=== PATIENT | female | born 1975 | race Caucasian/White ===

== ENCOUNTER 2021-11-12 21:27 | Outpatient (REF) | payer BC, SELFPAY ==
[2021-11-12 22:19] LABS: Bilirubin Negative (Negative); Blood Negative (Negative); Clarity Clear (Clear); Glucose Negative (Negative); Ketones Negative (Negative); Leukocyte Esterase Negative (Negative); Nitrite Negative (Negative); Urobilinogen 0.2 EU/dL (Up TO 0.2); pH 6.5 (5-8)
[2021-11-14 13:55] LABS: Chlamydia Result Negative (Negative); GC Result Negative (Negative)
== END 2021-11-12 21:28 | disposition home or self-care (01) ==
LOC: LBN 21:27
PROVIDERS: Visit Provider Nurse Practitioner Family
DX: R30.9 Painful micturition, unspecified (principal); R82.998 Other abnormal findings in urine
CPT/HCPCS: 87077; 87491; 87591; 81003; 87086; 87186; 87480; 87510; 87660

== ENCOUNTER 2021-12-17 18:51 | Outpatient (REF) | payer BC, SELFPAY ==
--- OUTSIDE RECORDS SUMMARY | 2021-12-17 18:53 | XMS_ITS ---
:1975 Author Care Team Providers Name Role Phone [facility] ALMANZA Pecan Grower [phone] SYLWIA DESHPANDE CLINICAL EXERCISE SPECIALIST Primary Care Provider [phone] Allergies Code Code System Name Reaction Severity Status Onset Shellfish Anaphylaxis ? Active ? Derived Notes: also has a rash when she is in the sun Medications Name Status Start Date Stop Date ? ? amoxicillin 500 mg capsule Completed ? 06/04 amoxicillin 875 mg-potassium Completed ? clavulanate 125 mg tablet Bentyl 10 mg capsule Active ? Not availab le Take 1 capsule 3 times a day by oral route. ciprofloxacin 750 mg tablet Active ? Not available Epi E-Z Pen 0.3 mg/0.3 mL injection, auto-injector Active ? Not available Take 1 auto every day by injection route as needed. fluticasone propionate 50 mcg/actuation Active ? Not available nasal spray,suspension valacyclovir 1 gram tablet Active ? Not a vailable Take 1 tablet every 12 hours by oral route for 14 days. Problems Name Status Onset Date Source ? Venous Varices Active 06/14/2020 ? Venous Insufficiency of Leg Active 06/14/2020 ? Irritable Bowel Syndrome Active 06/14/2020 ? Pain in Throat Active 07/05/2020 ? Procedures Date Name Performed by ? 11/21/2019 Endoscopy Information not avai lable 11/21/2019 Colonoscopy Information not avai lable ? Endovenous Laser Ablation of Varicose Ve in Information not available Notes: unilateral ? Procedure on Vein Information not avai lable Notes: cauterized vein in right leg Notes: H pylori antibody is nega tive Results Lab Results Date Name Specimen Result Interpretation Description Value Range Status Address ? 06/13/2020 SARS CoV 2 SWAB ? Covid-19 negative negative Fi nal [place] RNA Result [facility] (COVID-19), [facility] QL, reviewer sales-PCR, (Int ernal): Respiratory [address] Specimen [address]t ? ? SWAB ? Performing the broad ? Final No rth Lab institute [facility] L [facility] (Internal) : [address] 06/08/2020 CBC W/ Auto BLD Low Wbc 4.8 10*3/uL 5.0-10.0 F inal [place] Diff 10*3/uL [facility] L [facility] (Internal) : [address] ? ? BLD ? Rbc 4.54 4.10-5.30 Final [place] 10*6/uL 10*6/uL [facility] L ab (Internal) : [address] t ? ? BLD ? Hgb 13.6 g/dL 12.0-16.0 Final Nort h g/dL [facility] L [facility] (Internal) : [address] ? ? BLD ? Hct 41.5 % 37.0-47.0 Final [facility] : [address] ? ? BLD ? Mcv 91.4 fL 80.0-96.0 Final [facility] L ab (Internal) : [address] ? ? BLD ? Mch 30.0 pg 26.0-32.0 Final [facility] L ab (Internal) : [address] t ? ? BLD ? Mchc 32.8 g/dL 31.0-35.0 Final Nort h g/dL [facility] (Internal) : [address] t ? ? BLD ? Rdw 13.2 % 11.5-14.5 Final [facility] ([facility] : [address] t ? ? BLD ? Plt 309 10*3/uL 130-450 Final Nort h 10*3/uL [facility] (Internal) : [address] t ? ? BLD ? Anc 2.66 ? Final [place] 10*3/uL [facility] (Internal) : [address] ? ? BLD ? Nlr 1.64 0.00-3.[address] [facility] L ab (Internal) : [address] ? ? BLD ? Neutro 56.1 % 40.0-75.0 Final [facility] ([facility] : [address] ? ? BLD ? Lymph 34.1 % 20.0-50.0 Final [facility] L ab (Internal) : [address] ? ? BLD ? [place] 8.0 % 2.0-10.0 Final [facility] L ab (Internal) : [address] ? ? BLD Low Eos 0.8 % 1.0-6.0 % Final [facility] ab (Internal) : [address] ? ? BLD ? Baso 0.8 % 0.0-1.0 % Final [facility] L ab (Internal) : [address] ? ? BLD ? Ig 0.2 % 0.0-0.9 % Final [facility] ab (Internal) : [address] 06/08/2020 Hepatitis C S ? Hep C Ab W negative negative Final [place] Virus Ab, Rfx PCR Countr Serum Hospital L ab (Internal) : [address] 06/08/2020 HBsAg S ? Hep B negative negative Final No rth (Hepatitis B Surface Ag Country Surface Ag), Hosp ital Lab Serum (Internal) : [address] 06/08/2020 HIV (1+2) Ab S ? HIV 1/2 negative negative [facility] Screen, Antigen and Coun try Serum Antibody Hospital Lab (Internal) : [address] 06/08/2020 Pathology BLD ? Smear see comment ? Final [place] Review, Review [facility] L ab (Internal) : [address], [place] 06/04/2020 CBC W/ Auto BLD Low Wbc 4.1 10*3/uL 5.0-10.0 F [facility] Diff 10*3/uL [facility] (Internal) : [address] ? ? BLD ? Rbc 4.69 4.10-5.30 Final [place] 10*6/uL 10*6/uL [facility] (Internal) : [address] ? ? BLD ? Hgb 14.1 g/dL 12.0-16.0 Final Nort h g/dL [facility] (Internal) : [address] ? ? BLD ? Hct 42.9 % 37.0-47.0 Final [facility] (Internal[facility] : [address] ? ? BLD ? Mcv 91.5 fL 80.0-96.0 Final [facility] fL [facility] (Internal[facility] : [address] ? ? BLD ? Mch 30.1 pg 26.0-32.0 Final North pg [facility] (Internal) : [address] ? ? BLD ? Mchc 32.9 g/dL 31.0-35.0 Final Nort h g/dL [facility] (Internal) : [address] ? ? BLD ? Rdw 12.9 % 11.5-14.5 Final [facility] ([facility] : [address] ? ? BLD ? Plt 317 10*3/uL 130-450 Final Nort h 10*3/uL [facility] (Internal[facility] : [address] 06/04/2020 CMP, Serum S ? g/r 101 mg/dL 74-106 Final North or Plasma mg/dL [facility] (Internal) : [address] ? ? S ? Bun 15 mg/dL 7-17 Final [facility] mg/dL [facility] (Internal) : [address] ? ? S ? Crea 0.70 mg/dL 0.52-1.04 Final Nor th mg/dL [facility] (Internal) : [address] ? ? S ? Ca 9.7 mg/dL 8.4-10.2 Final [facility] mg/dL [facility] (Internal) : [address] ? ? S ? Na 139 mmol/L 137-145 Final [facility] mmol/L [facility] (Internal) : [address] ? ? S ? K 4.8 mmol/L 3.5-5.1 Final [facility] mmol/L [facility] (Internal) : [address] ? ? S ? Cl 103 mmol/L 98-107 Final [facility] mmol/L [facility] (Internal) : [address], [place] ? ? S ? Tco2 27.0 mmol/L 22.0-30.0 Final No rth mmol/L [facility] (Internal) : [address] ? ? S ? Tp 7.9 g/dL 6.3-8.2 Final [place] g/dL [facility] (Internal) : [address] ? ? S ? Alb 4.4 g/dL 3.5-5.0 Final [place] g/dL [facility] L ab (Internal) : [address] ? ? S ? Tbil 0.5 mg/dL 0.2-1.3 Final [place] mg/dL [facility] (Internal) : [address] ? ? S ? Alp 59 U/L 50-136 Final [place] U/L [facility] (Internal) : [address] ? ? S ? Alt (Sgpt) 15 U/L 9-52 U/L Final [facility] L [facility] (Internal) : [address] ? ? S ? Ast (Sgot) 25 U/L 14-36 U/L Final No rth [facility] (Internal) : [address] 06/04/2020 Culture, THRT ? Final microbiolog ? Final [place] Aerobic, y results Count [facility] L ab (Internal) : [address] 06/04/2020 Differential BLD Low Polys 39 % 40-75 % Final [facility] L ab (Internal) : [address] ? ? BLD ? Bands 0 % 0-5 % Final [facility] L ab (Internal) : [address] ? ? BLD ? Lymphs 49 % 20-50 % Final [facility] L ab (Internal) : [address] ? ? BLD High [place] 11 % 2-10 % Final [facility] L ab (Internal) : [address] ? ? BLD ? Eos 1 % 0-6 % Final [facility] L ab (Internal) : [address] ? ? BLD ? Baso 0 % 0-1 % Final [facility] ab (Internal) : [address] ? ? BLD ? Atyp Lymph 0 % ? Final [facility] (Internal) : [address] ? ? BLD ? Plts, Est. adequate adequate Final [facility] L ab (Internal) : [address] ? ? BLD ? RBC normal normal Final [facility] L ab (Internal) : [address] 06/04/2020 Neutrophil BLD ? Anc-manual 1.60 ? Yasmine angelic [place] Count, 10*3/uL [facility] Lab (Anc), Blood (Int ernal): [address] [facility] 06/04/2020 Nlr-manual BLD ? Nlr - 0.80 0.00-3.20 Final [facility] L ab (Internal) : [address] [facility] 06/04/2020 TSH, Serum S ? Tsh 1.12 0.47-4.68 [facility] Plasma u[IU]/mL u[IU]/mL [facility] Hospital L ab (Internal) : [address] 06/04/2020 Rapid Strep Throat ? Strep negative ? ? P_nc [facility] a, Care Throat [place]: [address] [place] [address] Past Encounters None recorded. Social History Tobacco Smoking Status Never Smoker Vaccine List Vaccine Type COVID-19, mRNA, LNP-S, PF, 100 mcg/0.5 m L dose (Moderna) 03/14/2021?100 mcg 04/10/2021?100 mcg Hep B, unspecified formulation 04/06/2009 06/14/2009 influenza, injectable, quadrivalent 10/18/2018 meningococcal B, OMV 03/28/2009 MMR 08/23/2002 Td, adsorbed, preservative free, adult u se, Lf unspecified 08/23/2002 varicella 05/01/2008 05/30/2008 Plan of Care Reminders Provider Appointments None ? ? recorded. Lab None ? ? recorded. Referral None ? ? recorded. Procedures None ? ? recorded. Surgeries None ? ? recorded. Imaging None ? ? recorded. Vitals Height Weight BMI Blood Pressure 167.64 cm 66.04 kg 23.5 kg/m2 118/80 mm[Hg]
== END 2021-12-17 18:52 | disposition home or self-care (01) ==
LOC: LBN 18:51
PROVIDERS: Visit Provider Nurse Practitioner Women's Health
DX: R30.0 Dysuria (principal)
CPT/HCPCS: 87086

== ENCOUNTER → 2022-03-19 03:13 | Outpatient (CLI) | payer BC, SELFPAY ==
--- NOTE | 2022-03-19 08:17 | DI.MAMMO_ITS ---
Exam(s) MAMMO SCREENING EXAM: MAMMO SCREENING CLINICAL HISTORY: screening,Z12.39 TECHNIQUE: Mammograms were interpreted according to the usual protocol including computer analysis w [employer] CAD system, tomosynthesis and C-view imaging. COMPARISON: 2017 and 2019 only breast Imaging Center [facility]. FINDINGS: The breasts are composed of heterogeneously dense fibroglandular densities, Breast Density category C . No suspicious masses or suspicious microcalcifications are seen. No skin thickening or abnormal axillary lymph nodes are seen. There has been no significant change from prior exams. IMPRESSION: BI-RADS Category 1, Negative mammogram. Yearly screening mammography is recommended. Breast Density Category C, heterogeneously Dense. The mammogram demonstrates the patient's breast tissue is dense. Dense breast tissue is very common a nd is not abnormal but dense breast tissue can make it harder to find cancer on a mammogram. Also, de nse breast tissue may increase breast cancer risk. This information about the result of the mammogram report was provided to the patient to raise their awareness. Use this report when you speak with the patient about their risks for breast cancer, which includes their family history. At that time, you may recommend additional screening tests (Ultrasound or MRI) as they might be useful based on their r isk. A negative radiographic report should not delay biopsy if a dominant or clinically suspicious mass is present. Up to ten percent of cancers are not identified on mammography. A negative report may reinforce clinical impression. Adenosis and dense breasts may obscure an underlying neoplasm. False positive reports average 6 to 10%.
== END ==
PROVIDERS: Visit Provider Nurse Practitioner Women's Health
DX: Z12.31 Encounter for screening mammogram for malignant neoplasm of breast (principal)
CPT/HCPCS: 77063; 77067

== ENCOUNTER 2022-03-19 10:50 | Outpatient (REF) | payer BC, SELFPAY ==
--- NOTE | 2022-03-19 09:15 | PAPFT_PTH ---
PATIENT: Raven Meraz LOC: [facility] U#:[id number] AGE/SX: 46/F ROOM: RE03/19/[address]: Maria Elena Castellanos NP : 1975 BED: DIS: 03/19/2022 SPEC #: [id number] RECD: 03/19/22 12:44 STATUS: NIC REEulalia #: [id number] TONYA: 03/19/22 09:[address]: Jasmin NELSON,Maria Elena DEPT: [facility] Cytology RECD BY: Amy Manriquez ENTERED: 03/19/22 12:45 SP TYPE: PAPFT OT DR: Unknown,Unknown Tissues: 1 - CX/ENDOCX FOR PAP SMEARS Procedures: PAP THIN PREP/UVM Screening HPV DNA PROBE Comments: [id number]
== END 2022-03-19 10:51 | disposition home or self-care (01) ==
LOC: LBN 10:50
PROVIDERS: Visit Provider Nurse Practitioner Women's Health
DX: Z12.4 Encounter for screening for malignant neoplasm of cervix (principal); Z11.51 Encounter for screening for human papillomavirus (HPV)
CPT/HCPCS: 88142; 87624